=== PATIENT | female | born 1975 | race Caucasian/White ===

== ENCOUNTER 2016-06-15 11:00 | Outpatient (RCR) | payer SELFPAY ==
[2016-06-15] VITALS (9 sets, daily range): BP systolic 93–104; BP diastolic 64–79; PULSE 76–93; TEMP 98.2–99
[~2016-06-15] VITALS: Ht 154.9 cm; Wt 48.6 kg
[~2016-06-15 11:00] MED LIST: CEPHALEXIN500 M1 PO; CLEOCIN HC150 MG/CAP PO; CLINDAMYCIN HC150 MG PO; CLINDAMYCIN HC300 MG PO; LORTAB 5/500 501 TAB PO; MACROBID 1100 MG/CAP PO; METHERGINE0.2 MG/TAB PO; MOTRIN 600600 MG/TAB PO; NAPROSYN 2250 MG/TAB PO; NO HOME MEDICATIONS; NORCO 325 MG-7.1 TAB PO; PERCOCET 325 MG1 TA2 PO; PERCOCET 5/321 UDTAB PO; PRENATAL; PRENATAL VITAMI1 TA5 PO; PRENATAL1 TA2 PO; PROPYLTHIOURACI50 MG PO; PYRIDIUM 100MG100 MG PO; PYRIDIUM200 M1 PO; SEPTRA DS 8001 TAB PO; ZOFRAN 4MG T4 MG/TAB PO
== END 2016-06-15 17:53 ==
LOC: EUO 11:00
DX: D64.89 Other specified anemias (principal)
CPT/HCPCS: J7050; P9016

== ENCOUNTER 2016-07-06 12:00 | Outpatient (RCR) | payer SELFPAY ==
[2016-06-25 12:10] VITALS: BP 115/59; PULSE 81; TEMP 97.8
[2016-06-28 13:23] VITALS: BP 96/68; PULSE 86; TEMP 98.3
[2016-07-02 16:24] VITALS: BP 104/69; PULSE 93; TEMP 98.2
[~2016-07-06] VITALS: Ht 154.9 cm; Wt 48.0 kg
[2016-07-06 12:33] VITALS: BP 102/66; PULSE 85; TEMP 98.9
== END 2016-07-06 13:41 | disposition home or self-care (01) ==
LOC: EUO 12:00
DX: D50.8 Other iron deficiency anemias (principal); Z79.899 Other long term (current) drug therapy
CPT/HCPCS: J2916

== ENCOUNTER 2016-07-30 21:41 | Emergency (ER) | payer SELFPAY ==
[~2016-07-30] VITALS: Ht 154.9 cm; Wt 50.0 kg
[2016-07-30 21:42] VITALS: TEMP 98.7
[2016-07-30 22:41] LABS: PH 5 (5-8); URINE APPEARANCE Cloudy; URINE BACTERIA Moderate /hpf; URINE BILIRUBIN Negative (NEGATIVE); URINE BLOOD 2+ (NEGATIVE); URINE COLOR Yellow; URINE GLUCOSE Negative (NEGATIVE); URINE KETONE Trace (NEGATIVE); URINE RBC 20-50 /hpf; URINE UROBILINOGEN Negative (NEGATIVE); URINE WBC >50 /hpf
[2016-07-30] MEDS ORDERED: PYRIDIUM200 M1 PO (23:01)
[2016-07-30] MEDS ORDERED: ZOFRAN 4MG T4 MG/TAB PO (23:01)
[2016-07-30] MEDS ORDERED: OMNICEF 300MG300 MG PO (23:01)
[2016-07-30 23:52] VITALS: BP 97/60; PULSE 79
== END 2016-07-30 23:54 | disposition home or self-care (01) ==
LOC: COL.ER 21:41
PROVIDERS: Emergency Medicine
DX: N39.0 Urinary tract infection, site not specified (principal)

== ENCOUNTER 2016-09-10 19:18 | Outpatient (RCR) | payer SELFPAY ==
[~2016-09-10] VITALS: Ht 154.9 cm; Wt 53.8 kg
[~2016-09-10 19:18] MED LIST changes: +OMNICEF 300MG300 MG PO
[2016-09-10 19:37] VITALS: BP 96/62; PULSE 99; TEMP 98.5
[2016-09-10 22:15] VITALS: BP 103/68; PULSE 90; TEMP 98.3
[2016-09-10 22:29] VITALS: BP 99/69; PULSE 87; TEMP 98.2
[2016-09-10 23:02] VITALS: BP 109/71; PULSE 87; TEMP 98.3
[2016-09-10 23:59] VITALS: BP 101/60; PULSE 79; TEMP 98.1
[2016-09-11 00:42] VITALS: BP 97/58; PULSE 79; TEMP 98.2
[2016-09-11 00:59] VITALS: BP 95/65; PULSE 78; TEMP 98.2
[2016-09-11 01:29] VITALS: BP 92/48; PULSE 89; TEMP 98.2
[2016-09-11 02:31] VITALS: BP 95/58; PULSE 83; TEMP 98.2
[2016-09-11 03:14] VITALS: BP 103/69; PULSE 87; TEMP 98
== END 2016-09-11 03:30 | disposition home or self-care (01) ==
LOC: EUO 19:18 → SURG 19:20 → EUO 09-11 03:30
DX: D64.9 Anemia, unspecified (principal)
CPT/HCPCS: OP; P9016

== ENCOUNTER 2016-09-21 13:30 | Outpatient (RCR) | payer SELFPAY ==
[2016-09-17 13:44] VITALS: BP 98/66; PULSE 76; TEMP 98.5
[2016-09-19 14:15] VITALS: BP 90/68; PULSE 85; TEMP 98.6
[~2016-09-21] VITALS: Ht 154.9 cm; Wt 48.6 kg
[2016-09-21 13:51] VITALS: BP 90/65; PULSE 74; TEMP 98
== END 2016-09-21 16:22 | disposition home or self-care (01) ==
LOC: EUO 13:30
DX: E61.1 Iron deficiency (principal); Z79.899 Other long term (current) drug therapy
CPT/HCPCS: J2916

== ENCOUNTER 2016-09-29 16:54 | Emergency (ER) | payer SELFPAY ==
[~2016-09-29] VITALS: Ht 154.9 cm; Wt 48.6 kg
[2016-09-29 16:57] VITALS: TEMP 98.8
[2016-09-29] MEDS ORDERED: BIRTH CONTROL (17:12)
[2016-09-29] MEDS ORDERED: EZFE 200200 MG PO (17:13)
[2016-09-29 17:25] VITALS: BP 104/78
[2016-09-29 17:26] LABS: BASO # 0.1 (0.0-0.2); BASO % 0.8 % (0.0-2.0); EOS # 0.1 (0.0-0.7); EOS % 2.1 % (0-4.0); GRAN % 64.5 % (42.2-75.2); LYMPH # 1.6 (1.2-3.4); LYMPH % 25.3 % (20.0-51.0); MEAN CELL VOLUME 82 fl (80.0-100.0); MEAN CORPUSCULAR HGB CONC 33 g/dl (33.0-37.0); MEAN PLATELET VOLUME 10.8 fl (7.4-10.4); MONO # 0.4 (0.1-0.6); MONO % 7.1 % (1.7-9.3); PLATELET COUNT 276 K/mm3 (130-400); RED BLOOD COUNT 3.71 M/mm3 (4.10-5.30); REDCELL DISTRIBUTION WIDTH-CV 18.9 % (11.5-14.5); WHITE BLOOD COUNT 6.2 K/mm3 (4.8-10.8)
[2016-09-29 17:28] LABS: HEMATOCRIT 30.5 % (37.0-47.0); HEMOGLOBIN 10.1 g/dl (12.5-16.0); MEAN CORPUSCULAR HEMOGLOBIN 27 pg (27.0-31.0)
[2016-09-29 17:34] LABS: CALCIUM 8.7 mg/dL (8.4-10.2); CREATININE, serum 0.65 mg/dL (0.52-1.25); POTASSIUM 3.8 mmol/L (3.4-5.0)
[2016-09-29 18:40] VITALS: PULSE 95
== END 2016-09-29 18:40 | disposition home or self-care (01) ==
LOC: COL.ER 16:54
PROVIDERS: Emergency Medicine
DX: N93.9 Abnormal uterine and vaginal bleeding, unspecified (principal); D25.9 Leiomyoma of uterus, unspecified; D64.9 Anemia, unspecified
CPT/HCPCS: J7030

== ENCOUNTER 2016-12-18 13:43 | Observation (INO) | payer OTHER ==
[~2016-12-18] VITALS: Ht 154.9 cm; Wt 50.9 kg
[2016-12-18] VITALS (10 sets, daily range): BP systolic 91–104; BP diastolic 62–80; PULSE 70–93; TEMP 97.2–98.8
[~2016-12-18 13:43] MED LIST changes: +BIRTH CONTROL; +EZFE 200200 MG PO
[2016-12-18] MEDS ORDERED: MULTI VITAMINS1 TAB PO (13:51)
[2016-12-18] MEDS ORDERED: EZFE 200200 MG PO (13:52)
[2016-12-19 01:09] LABS: EOS # 0.2 (0.0-0.7); EOS % 4.3 % (0-4.0); GRAN # 1.9 (1.4-6.5); GRAN % 46.1 % (42.2-75.2); HEMATOCRIT 30.8 % (37.0-47.0); HEMOGLOBIN 9.9 g/dl (12.5-16.0); LYMPH # 1.4 (1.2-3.4); MEAN CELL VOLUME 79 fl (80.0-100.0); MEAN CORPUSCULAR HEMOGLOBIN 25 pg (27.0-31.0); MEAN CORPUSCULAR HGB CONC 32 g/dl (33.0-37.0); MONO # 0.5 (0.1-0.6); MONO % 12.3 % (1.7-9.3); PLATELET COUNT 171 K/mm3 (130-400); RED BLOOD COUNT 3.91 M/mm3 (4.10-5.30); REDCELL DISTRIBUTION WIDTH-CV 14.7 % (11.5-14.5)
[2016-12-19 01:13] VITALS: BP 93/52; PULSE 65; TEMP 97.7
[2016-12-19 01:19] VITALS: BP 149/82; PULSE 69; TEMP 98
[2016-12-19 06:02] VITALS: BP 96/61; PULSE 64; TEMP 98
[2016-12-19 09:58] VITALS: BP 100/71; PULSE 75; TEMP 98.4
[2016-12-19 13:39] VITALS: BP 97/65; PULSE 90; TEMP 98.2
[2016-12-19 17:11] VITALS: BP 94/66; PULSE 83; TEMP 98.4
== END 2016-12-19 18:00 | disposition home or self-care (01) ==
LOC: COL.ER 13:43 → SURG 18:06
PROVIDERS: Obstetrics & Gynecology
DX: D64.9 Anemia, unspecified (principal); N92.0 Excessive and frequent menstruation with regular cycle; D25.9 Leiomyoma of uterus, unspecified; Z87.891 Personal history of nicotine dependence; F41.9 Anxiety disorder, unspecified
CPT/HCPCS: G0378; J2210; J7050; J7120; P9016